=== PATIENT | female | born 1975 | race Caucasian/White ===

== ENCOUNTER 2023-09-28 09:46 | Emergency (ER) | payer OTHER, SELFPAY ==
--- NOTE | ~2023-09-28 | XR_ITS ---
XR chest 2V DATE: 09/28/2023 10:10 INDICATION: Palpitations TECHNIQUE: PA and lateral views COMPARISON: None FINDINGS: Bilateral hyperinflation. No pulmonary infiltrate or consolidation, pleural effusion or pul monary vascular congestion or pneumothorax. Normal heart size. No hilar or mediastinal enlargement. Minimal thoracic levoscoliosis. Mild degenerative spurring of the thoracic spine. No suspicious osteo lytic or osteoblastic lesions. IMPRESSION: Bilateral hyperinflation; no active cardiopulmonary disease Reviewed, dictated and finalized at location A.
--- NOTE | 2023-09-28 09:51 | ECG_ITS ---
[facility] [address] Test Date: 2023-09-28 Pat Name: Dawn Teresa Department: Room: Gender: F Shearer Operator: : 1975 Requested By: Ruthie Wong Order Number: [id number] Tong MD: Penny Olmstead M.D. Measurements Intervals [place] Rate: 81 P: 75 [place]: 157 QRS: 63 QRSD: 79 T: 58 QT: 374 QTc: 435 Interpretive Statements SINUS RHYTHM No previous ECG available for comparison Electronically Signed On 09-28-2023 14:18:43 CDT by Penny Olmstead M.D.
[2023-09-28 10:09] VITALS: BP 112/68; PULSE 98; RESP 16; TEMP 36.6; O2SAT 100
[2023-09-28 10:23] LABS: Basophils Percent Auto 0.6 % (0.2-1.2); Eosinophils Absolute Auto 0.1 K/mm3 (0-0.3); Eosinophils Percent Auto 1.7 % (0-4.4); Hematocrit 36.2 % (37.0-47.0); Immature Granulocyte Absolute 0.02 K/mm3 (0.00-0.031); Immature Granulocyte Percent A 0.3 % (0-0.5); Lymphocytes Absolute Auto 1.66 K/mm3 (0.9-3.2); Lymphocytes Percent Auto 23.6 % (18.3-44.2); Mean Corpuscular HGB Conc 33.1 g/dl (32-36); Mean Corpuscular Hemoglobin 31.8 pg (26-34); Monocytes Absolute Auto 0.6 K/mm3 (0.1-0.6); Monocytes Percent Auto 8.4 % (2.6-8.5); Neutrophils Absolute Auto 4.6 K/mm3 (1.3-6.7); Neutrophils Percent Auto 65.4 % (45.5-73.1); Platelet Count Result 223 k/mm3 (150-375); Red Blood Count 3.77 M/mm3 (4.2-5.4); Red Cell Distribution Width 12.4 % (11.5-14.5)
[2023-09-28 10:30] LABS: Alanine Aminotransferase 31 U/L (6-35); Albumin Level 3.6 g/dL (3.5-5.1); Alkaline Phosphatase 62 U/L (38-126); Anion Gap 3 mmol/L (4-12); Aspartate Amino Transferase 26 U/L (14-36); Bilirubin,Total 0.3 mg/dL (0.2-1.3); Blood Urea Nitrogen 20 mg/dL (7-17); Calcium 8.6 mg/dL (8.4-10.2); Carbon Dioxide 28 mmol/L (22-30); Chloride 107 mmol/L (98-107); Estimated Glomerular Filt Rate > 60; Glucose 90 mg/dL (65-110); Potassium 4.1 mmol/L (3.4-5.0); Sodium 138 mmol/L (137-145)
[2023-09-28 10:33] LABS: Appearance Urine Turbid (Clear); Bacteria Urine None Seen /hpf; Bilirubin Urine Negative (Negative); Blood Urine Negative (Negative); Color Urine Yellow (Yellow); Glucose Urine UA Negative (Negative); Ketones Urine Negative (Negative); Leukocyte Esterase Ur Negative LEU/UL (Negative); Nitrate Urine Negative (Negative); Non Pathogenic Casts 0-2; Protein Urine Negative (Negative); RBC Urine 0-2 /hpf (0-2); Specific Grav Ur 1.019 (1.001-1.035); Squamous Epithelial Cell Urine None Seen /hpf (Few); Urobilinogen Urine 0.2 mg/dL (<2.0); WBC Urine 0-5 /hpf (0-3); pH Urine 7.5 (5.0-9.0)
[2023-09-28 10:38] LABS: Add Urine Microscopic? YES
[2023-09-28 10:45] VITALS: BP 110/62; PULSE 76; RESP 17; TEMP 36.6; O2SAT 100
[2023-09-28 10:45] LABS: Troponin I < 0.012 ng/mL (0.000-0.034)
[2023-09-28 11:07] LABS: Amphetamine Screen Urine Negative (Negative); Barbiturate Screen Urine Negative (Negative); Benzodiazepines Screen Urine Negative (Negative); Cannabinoid Screen Urine Negative (Negative); Cocaine Screen Urine Negative (Negative); Methadone Screen Urine Negative (Negative); Opiate Screen Urine Negative (Negative); Phencyclidine Screen Urine Negative (Negative)
--- NOTE | 2023-09-28 11:18 | ED.CHESTPAIN ---
HPI - Chest Pain General Chief Complaint: Chest Pain Stated Complaint: CP, L sided pain Time Seen by Provider: 09/28/23 10:40 Source: patient Mode of arrival: ambulatory Limitations: no limitations History of Present Illness HPI narrative: Pt developed left sided chest pain at rest approx 0900. It resolved but she woke up with palpitations. Episode lasted a few minutes. Radiated to left neck. Associated with shortness of breath. No LE edema. Currently at [place] , admitted with reported PTSD trying to seek treatment. Had been given 2mg nicotine gum and a nicotine patch 14mg at approximately 0900. Smoker. No diagnosis of HTN or HLD. Positive family history of RI (mother at age 65, father later). Last used meth 2 weeks ago. States she doesn't know if she has a history of DVT or PE but denies being on anticoagulation. Not on exogenous hormones. Denies cough or hemoptysis. Related Data Allergies Allergy/AdvReac Type Severity Reaction Status Date / Time cyclobenzaprine Allergy Swelling Verified 09/28/23 11:46 [From Flexeril] of Lip/Tongue/Throat PMFSH Family History Family History Mother Acute myocardial infarction, Onset Age: 65 Father Acute myocardial infarction after age 65 Social History Social History (Updated 09/30/23 @ 01:01 by Ruthie Dover MD) Smoking packs per day: 0.4 Smoking cigarettes per day: 8.0 Substance use type: amphetamines Last use: mid August 2023 Additional living arrangements comments: Currently at [facility] Exam Narrative: GENERAL: Well-appearing, well-nourished, and in no acute distress. HEAD: Normocephalic, atraumatic. EYES: Non injected, non icteric ENT: Nares clear, no rhinorrhea or epistaxis. NECK: Supple. CHEST: Speaking in full sentences. No respiratory distress. Lungs CTAB. HEART: Regular rate and rhythm. . ABDOMEN: Soft, nondistended. EXTREMITIES: Normal range of motion. No LE edema. SKIN: Warm, dry, no rash. NEURO: No focal deficits. Alert and oriented x3. Ambulates with steady gait PSYCH: Intermitently restless, mildly agitated but calms with verbal engagement/re-direction Course Vital Signs Vital signs: Vital Signs Temperature 97.9 F 09/28/23 10:09 Pulse Rate 98 09/28/23 10:09 Respiratory Rate 16 09/28/23 10:09 Blood Pressure 112/68 09/28/23 10:09 Pulse Oximetry 100 09/28/23 10:09 Oxygen Delivery Room Air 09/28/23 10:09 Temperature 97.9 F 09/28/23 13:34 Pulse Rate 74 09/28/23 13:34 Respiratory Rate 16 09/28/23 13:34 Blood Pressure 103/67 09/28/23 13:34 Pulse Oximetry 98 09/28/23 13:34 Oxygen Delivery Room Air 09/28/23 10:17 MDM - Chest Pain MDM Narrative Medical decision making narrative: Patient presents with left sided chest pain associated with shortness of breath. This occurred at rest shortly after she was given 2mg nicotine gum and a 14mg nicotine transdermal patch. In the emergency department they are afebrile with vital signs within normal limits. Cannot apply PERC given patient thinks she might have been told she had a previous blood clot, though unknown DVT versus PE and it seems unclear as she was never on anticoagulation. Given the ambiguity, will add Dimer. HEART SCORE History 2 highly suspicious 1 moderately suspicious 0 slightly suspicious History score [address] depression/elevation not due to LBBB, LVH, or digoxin [address] depression but LBBB, LVH, nonspecific repolarization changes 0 normal ECG score 0 Age 2 >/= 65 1 45-64 0 <45 Age score 1 Risk factors (HTN, hypercholesterolemia, DM, obesity with BMI >30, current smoker or cessation </=3mo), positive fam hx with parent or sibling with CVD before age 65, atherosclerotic disease (prior RI, PCI/CABG, CVA/TIA, or peripheral arterial disease) 2 >/= 3 risk factors or history of atherosclerotic dz 1 - 1-2 risk factors (mother, smoke
[2023-09-28 11:30] VITALS: BP 103/64; PULSE 77; RESP 16; TEMP 36.7; O2SAT 99
[2023-09-28] MEDS: SODIUM CHLORIDE 0.9% IV 1,000 ML 999 ML IV CONT (11:46)
[2023-09-28 12:04] LABS: D Dimer 0.33 ug/mL (<0.48)
[2023-09-28 12:30] VITALS: BP 106/63; PULSE 75; RESP 16; TEMP 36.6; O2SAT 98
[2023-09-28 13:25] LABS: Troponin I < 0.012 ng/mL (0.000-0.034)
[2023-09-28 13:34] VITALS: BP 103/67; PULSE 74; RESP 16; TEMP 36.6; O2SAT 98
== END 2023-09-28 13:50 | disposition home or self-care (01) ==
PROVIDERS: Emergency Provider Student in an Organized Health Care Education/Training Program
DX: R07.9 Chest pain, unspecified (principal); F17.210 Nicotine dependence, cigarettes, uncomplicated
CPT/HCPCS: 36415; 71046; 80053; 80307; 81001; 84484; 85025; 85380; 93005; 96360; 99284; J7030